=== PATIENT | male | born 1960 | race Caucasian/White ===

== ENCOUNTER 2022-02-15 09:29 | Emergency (ER) | payer SELFPAY ==
[2022-02-15] MEDS ORDERED: Sodium Chloride 0.9% 10 ML Syringe FLUSH PRN (09:34)
[2022-02-15 09:54] VITALS: BP 180/100; PULSE 73
[2022-02-15 10:11] LABS: AMPHETAMINES,URINE NEGATIVE (NEGATIVE); BARBITURATES,URINE NEGATIVE (NEGATIVE); BENZODIAZEPINE,URINE NEGATIVE (NEGATIVE); MDMA (ECSTASY), URINE NEGATIVE (NEGATIVE); METHADONE,URINE NEGATIVE (NEGATIVE); METHAMPHETAMINES,URINE NEGATIVE (NEGATIVE); OPIATES,URINE NEGATIVE (NEGATIVE); OXYCODONE,URINE NEGATIVE (NEGATIVE); PHENCYCLIDINE,URINE NEGATIVE (NEGATIVE); TCA,URINE NEGATIVE (NEGATIVE)
[2022-02-15 10:22] LABS: ANION GAP 13.9 mEq/L (7-13); CHLORIDE,CL 98 mmol/L (98-107); SODIUM,NA 132 mmol/L (136-145)
[2022-02-15 10:30] LABS: ESTIMATED GFR 71 mL/min (>=60)
== END 2022-02-15 11:03 | disposition home or self-care (01) ==
LOC: DL.ED 09:29
DX: E11.65 Type 2 diabetes mellitus with hyperglycemia (principal); I10 Essential (primary) hypertension; Z20.822 Contact with and (suspected) exposure to COVID-19; Z79.82 Long term (current) use of aspirin
CPT/HCPCS: 36415; 70450; 80053; 80305-QW; 81001; 83605; 83735; 84443; 85025; 86140; 99284; 99285; U0002

== ENCOUNTER 2022-02-19 01:21 | Inpatient (IN) | payer SELFPAY ==
[2022-02-19 01:16] LABS: ANION GAP 16.9 mEq/L (7-13); CHLORIDE,CL 100 mmol/L (98-107); SODIUM,NA 137 mmol/L (136-145)
[2022-02-19 01:18] LABS: ESTIMATED GFR 75 mL/min (>=60)
[~2022-02-19 01:21] MED LIST: Aspirin 325 MG Tab PO ONE; Clopidogrel 75 MG Tab PO ONE; Rosuvastatin 10 MG Tab PO ONE
[2022-02-19 08:34] VITALS: BP 137/85; PULSE 72
== END 2022-02-19 11:00 | disposition left against medical advice (07) | DRG 65 ==
LOC: DL.ED 01:21 → DL.MS 02:24
PROVIDERS: ADMIT Internal Medicine; ATTEND Internal Medicine
DX: I63.30 Cerebral infarction due to thrombosis of unspecified cerebral artery (principal); G81.94 Hemiplegia, unspecified affecting left nondominant side; E11.65 Type 2 diabetes mellitus with hyperglycemia; E78.5 Hyperlipidemia, unspecified; K52.9 Noninfective gastroenteritis and colitis, unspecified; M19.90 Unspecified osteoarthritis, unspecified site; F41.9 Anxiety disorder, unspecified; E11.9 Type 2 diabetes mellitus without complications; Z86.19 Personal history of other infectious and parasitic diseases; Z20.822 Contact with and (suspected) exposure to COVID-19; R29.706 NIHSS score 6
CPT/HCPCS: 36415; 70450; 80053; 80307; 81001; 82009; 82947; 83605; 84484; 85025; 85610; 87086; 93005; 99285; A9270-GY; U0002

== ENCOUNTER 2022-02-19 11:43 | Emergency (ER) | payer SELFPAY ==
[2022-02-19] MEDS ORDERED: Iopamidol 755 Mg/ML 100 ML Bottle IVPUSH ONE (16:03)
[2022-02-19] MEDS ORDERED: Clopidogrel 75 MG Tab PO ONE (18:54)
[2022-02-19] MEDS ORDERED: glipiZIDE 5 MG Tab PO SCH (19:00)
[2022-02-19 19:36] VITALS: BP 170/87; PULSE 76
== END 2022-02-19 21:07 | disposition home or self-care (01) ==
LOC: DL.ED 11:43
DX: I63.30 Cerebral infarction due to thrombosis of unspecified cerebral artery (principal); I65.23 Occlusion and stenosis of bilateral carotid arteries; E11.65 Type 2 diabetes mellitus with hyperglycemia; E78.00 Pure hypercholesterolemia, unspecified; I10 Essential (primary) hypertension; F17.210 Nicotine dependence, cigarettes, uncomplicated; Z86.73 Personal history of transient ischemic attack (TIA), and cerebral infarction without residual deficits; Z79.82 Long term (current) use of aspirin; Z79.899 Other long term (current) drug therapy; Z79.84 Long term (current) use of oral hypoglycemic drugs
CPT/HCPCS: 70496; 70498; 82947; 99284; 99285; A9270-GY; Q9967